=== PATIENT | male | born 1970 | race Caucasian/White ===

== ENCOUNTER 2018-04-06 08:04 | Emergency (ER) | payer OTHER ==
[2018-04-06 08:11] VITALS: BP 151/92
[2018-04-06] MEDS ORDERED: LIDOCAINE 5% (700 MG) TRANSDERMAL ADH..PATCH TP ONE ×2 (09:08→09:43)
--- NOTE | 2018-04-06 09:12 | RADIOLOGY REPORT (SQ) ---
EXAM DESCRIPTION: HAND LEFT 3 VIEWS COMPLETED DATE/TIME: 04/06/2018 9:03 am REASON FOR STUDY: thumb snuff box pain no hx of trauma COMPARISON: None. EXAM PARAMETERS: NUMBER OF VIEWS: Three views. TECHNIQUE: AP, lateral and oblique radiographic images acquired of the left hand. LIMITATIONS: None. FINDINGS: MINERALIZATION: Normal. BONES: Tiny avulsion fragment is seen in the 1st carpometacarpal joint, along the radial aspect of th e trapezium bone. Overlying soft tissue swelling is present. No widening at the scaphotrapezium or 1st carpometacarpal joint. JOINTS: No malalignment SOFT TISSUES: Radial aspect, left wrist soft tissue swelling. No foreign body. OTHER: No other significant finding. IMPRESSION: Tiny avulsion fragment along the radial aspect of the trapezium bone. Overlying soft ti ssue swelling. No malalignment at the scaphotrapezium or 1st carpometacarpal joint. TECHNICAL DOCUMENTATION: JOB ID: [id number] [employer]- All Rights Reserved Reading location - IP/workstation name: [email or web address]
--- NOTE | 2018-04-06 09:45 | ER Document Report ---
ED General - General Chief Complaint: Wrist Injury Stated Complaint: HAND PAIN Time Seen by Provider: 04/06/18 08:30 Primary Care Provider: LAKESHA AGEE DO [ACTIVE STAFF] - Follow up tomorrow TRAVEL OUTSIDE OF THE [place] IN LAST 30 DAYS: No - HPI Patient complains to provider of: Left thumb injury Notes: Patient coming in for 3 weeks of left thumb injury. Patient states decreased plugman strength of his left thumb denies any history of trauma. Patient states pain in the anatomical snuffbox on the left-hand side. Again patient denies any falls skiing accidents fights or any other trauma. Patient denies any fevers chills nausea vomiting diarrhea. - Related Data Allergies/Adverse Reactions: No Known Allergies Allergy (Verified 04/06/18 08:05) Past Medical History - Social History Smoking Status: Never Smoker Chew tobacco use (# tins/day): No Frequency of alcohol use: Occasional Drug Abuse: None Family History: Reviewed & Not Pertinent Patient has suicidal ideation: No Patient has homicidal ideation: No Renal/ Medical History: Denies: Hx Peritoneal Dialysis Review of Systems - Review of Systems Constitutional: No symptoms reported EENT: No symptoms reported Cardiovascular: No symptoms reported Respiratory: No symptoms reported Gastrointestinal: No symptoms reported Genitourinary: No symptoms reported Male Genitourinary: No symptoms reported Musculoskeletal: Other - Thumb pain Skin: No symptoms reported Hematologic/Lymphatic: No symptoms reported Neurological/Psychological: No symptoms reported -: Yes All other systems reviewed and negative Physical Exam - Vital signs Vitals: Temp Pulse Resp BP Pulse Ox 97.4 F 88 19 151/92 H 96 04/06/18 08:09 04/06/18 08:09 04/06/18 08:09 04/06/18 08:09 04/06/18 08:09 Interpretation: Normal - General General appearance: Appears well, Alert - HEENT Head: Normocephalic, Atraumatic Eyes: Normal Pupils: PERRL - Respiratory Respiratory status: No respiratory distress Chest status: Nontender Breath sounds: Normal Chest palpation: Normal - Cardiovascular Rhythm: Regular Heart sounds: Normal auscultation Murmur: No - Abdominal Inspection: Normal Distension: No distension Bowel sounds: Normal Tenderness: Nontender Organomegaly: No organomegaly - Back Back: Normal, Nontender - Extremities General upper extremity: Normal inspection, Nontender, Normal color, Normal ROM, Normal temperature General lower extremity: Normal inspection, Tender - Range of motion of the thumb and hand on the left-hand side is intact capillary refill is intact. Patient has no pain with active or passive extension or flexion of the thumb however when performing Houston's testing patient does have tenderness can reproduce the tenderness to palpation of the snuffbox., Normal color, Normal ROM, Normal temperature, Normal weight bearing. No: Savannah's sign - Neurological Neuro grossly intact: Yes Cognition: Normal Orientation: AAOx4 Hari Coma Scale Eye Opening: Spontaneous Hari Coma Scale Verbal: Oriented [place] Coma Scale Motor: Obeys Commands Hari Coma Scale Total: 15 Speech: Normal Motor strength normal: LUE, RUE, LLE, RLE Sensory: Normal - Psychological Associated symptoms: Normal affect, Normal mood - Skin Skin Temperature: Warm Skin Moisture: Dry Skin Color: Normal Course - Re-evaluation Re-evalutation: 04/06/18 14:34 Patient has a small avulsion fracture seen at the base of the thumb more likely from tendon tear. Patient is already wearing a Velcro thumb spica splint recommend the patient continue to wear the thumb spica follow-up with hand surgeon patient is from [facility] that he will contact his hand surgeon in [place]. Patient otherwise will be discharged home Ultram for pain control Tylenol Motrin ice and elevation - Vital Signs Vital signs: Temp Pulse Resp BP Pulse Ox 97.4 F 88 19 151/92 H 96 04/06/18 08:09 04/06/18 08:09 04/06/18 08:09 04/06/18 08:09 04/06/18 08:09 Discharge - Discharge Clinical Impression: Avulsion fracture of thumb Qualifiers: Encounter type: initial encounter Fracture type: closed Laterality: left Qualified Code(s): S62.502A - Fracture of unspecified phalanx of left thumb, initial encounter for closed fracture Instructions: Avulsion Fracture ([facility]) Additional Instructions: Your evaluation today shows an avulsion fracture at the base of the thumb. I recommend continue to wear your thumb spica splint that you already have. He can also use the lidocaine patches once a day to help out with pain these are available [id number] please continue anti-inflammatory medication along with Tylenol. Ice the area. I would recommend following up with a hand surgeon as listed. He may use the Ultram as needed for severe pain. Prescriptions: Tramadol HCl [Ultram 50 mg Tablet] 50 mg PO ASDIR PRN #20 tablet PRN Reason: Forms: Return to Work Referrals: LAKESHA AGEE DO [ACTIVE STAFF] - Follow up tomorrow
== END 2018-04-06 10:24 | disposition home or self-care (01) ==
LOC: ER 08:04
DX: S62.502A Fracture of unspecified phalanx of left thumb, initial encounter for closed fracture (principal); X58.XXXA Exposure to other specified factors, initial encounter
CPT/HCPCS: 99283